=== PATIENT | female | born 1965 | race Caucasian/White ===

== ENCOUNTER 2019-05-20 16:33 | Emergency (ER) | payer OTHER ==
[~2019-05-20] VITALS: Ht 167.6 cm; Wt 62.1 kg
[2019-05-20] MEDS ORDERED: HYDROCODONE/APAP 5-325MG TABLET ONE (17:12)
[2019-05-20] MEDS ORDERED: IBUPROFEN 800 MG TABLET PO ONE (17:15)
[2019-05-20] MEDS ORDERED: HYDROCODONE/APAP 5-325MG TABLET PO ONE (17:15)
[2019-05-20] MEDS ORDERED: ACETAMINOPHEN ES 500 MG TABLET PO ONE (17:15)
--- NOTE | 2019-05-20 17:46 | NUR ---
PATIENT WAS SEEN BY MD. XRAYS DONE. TOES ARE TAPED PER MD INSTRUCTIONS. DC, RX (INCLUDING PRECAUTIONS) AND F/U INSTRUCTIONS GIVEN AND EXPLAINED TO PATIENT AND WHO STATE THEY UNDERSTAND ALL INSTRUCTIONS.
== END 2019-05-20 17:53 | disposition home or self-care (01) ==
LOC: ER 16:33
DX: S92.512A Displaced fracture of proximal phalanx of left lesser toe(s), initial encounter for closed fracture (principal); K43.9 Ventral hernia without obstruction or gangrene; M79.661 Pain in right lower leg; W23.0XXA Caught, crushed, jammed, or pinched between moving objects, initial encounter; Y93.89 Activity, other specified; Y92.89 Other specified places as the place of occurrence of the external cause; Y99.8 Other external cause status
CPT/HCPCS: 73660; A4663

== ENCOUNTER 2019-05-26 13:12 | Emergency (ER) | payer OTHER ==
[~2019-05-26] VITALS: Ht 167.6 cm; Wt 62.6 kg
--- NOTE | 2019-05-26 14:37 | NUR ---
Crutches dispensed. Pt instructed on proper use of crutches. Patient able to demonstrate correct use of crutches. Patient discharged to home in stable conditon. Written and verbal after care instructions given to patient. Patient verbalizes understanding of instructions.
[2019-05-26] MEDS ORDERED: IBUPROFEN 600 MG TABLET ONE (14:43)
[2019-05-26] MEDS ORDERED: IBUPROFEN 600 MG TABLET PO ONE (14:45)
== END 2019-05-26 14:48 | disposition home or self-care (01) ==
LOC: ER 13:12
DX: S92.512D Displaced fracture of proximal phalanx of left lesser toe(s), subsequent encounter for fracture with routine healing (principal); W22.8XXD Striking against or struck by other objects, subsequent encounter
CPT/HCPCS: A4663